=== PATIENT | female | born 1965 | race Caucasian/White ===

== ENCOUNTER 2016-12-14 12:06 | Emergency (ER) | payer OTHER ==
[~2016-12-14] VITALS: Ht 167.6 cm; Wt 88.4 kg
[2016-12-14 13:54] LABS: HEMATOCRIT 41.8 % (36.0-46.0); MCH 31.5 PG (29.0-34.0); MCHC 33.5 G/DL (30.0-36.0); MCV 94.1 FL (83-99); MEAN PLAT.VOLUME 9.3 uM^3 (9.5-12.4); PLATELET COUNT 448 K/uL (156-360); RBC DIS.WIDTH-SD 41.7 % (39-53); RED BLOOD COUNT 4.44 M/uL (3.80-5.20); WHITE BLOOD COUNT 9.5 K/uL (4.1-10.2)
[2016-12-14 14:04] LABS: CHLORIDE 106 mEq/L (99-109); POTASSIUM 3.9 mEq/L (3.7-5.4); SODIUM 143 mEq/L (136-147)
[2016-12-14 14:06] LABS: GLUCOSE 82 mg/dL (70-99)
[2016-12-14 14:07] LABS: ANION GAP 16 MEQ/L (2-14)
[2016-12-14 14:11] LABS: UREA NITROGEN (BUN) 7 mg/dL (9-23)
[2016-12-14 14:12] LABS: GFR ESTIMATE (CALCULATED) > 59 mL/min/
[2016-12-14] MEDS ORDERED: PERCOCET 5/31 TABLET PO (15:35)
[2016-12-14] MEDS ORDERED: ZOFRAN ODT4 MG PO (15:58)
[2016-12-14 16:05] VITALS: BP 128/78
== END 2016-12-14 16:06 | disposition home or self-care (01) ==
LOC: EME 12:06
PROVIDERS: Physician Assistant
DX: J90 Pleural effusion, not elsewhere classified (principal); N63 Unspecified lump in breast; F17.200 Nicotine dependence, unspecified, uncomplicated
CPT/HCPCS: 71020; 71250; 80048; 81003; 83880; 85027; 99281; 99285

== ENCOUNTER 2017-01-10 07:00 | Day surgery (SDC) | payer OTHER ==
[~2017-01-10] VITALS: Ht 167.6 cm; Wt 83.5 kg
== END 2017-01-10 09:35 | disposition home or self-care (01) ==
LOC: CATH 07:00
DX: C50.912 Malignant neoplasm of unspecified site of left female breast (principal); I87.8 Other specified disorders of veins
CPT/HCPCS: C1751; C1894; J1644; J2250; J3010; S0020

== ENCOUNTER → 2017-01-10 | Outpatient (CLI) | payer OTHER ==
[~2017-01-10] MED LIST: OXYCODONE HCL10 MG PO; PERCOCET 5/31 TABLET PO; ZOFRAN ODT4 MG PO
== END | disposition home or self-care (01) ==
LOC: RAD 09:36 → EDSTATUS 14:00 → RAD 14:00
PROC: 0W9B3ZZ Drainage of Left Pleural Cavity, Percutaneous Approach (ICD-10-PCS; principal; 2017-01-10)
DX: J90 Pleural effusion, not elsewhere classified (principal)
CPT/HCPCS: 76942; 88108; 88305

== ENCOUNTER 2017-01-19 20:37 | Emergency (ER) | payer OTHER ==
[~2017-01-19] VITALS: Ht 167.6 cm; Wt 81.4 kg
[2017-01-19] MEDS ORDERED: PROMETHAZINE HC25 M1 PO (20:51)
[2017-01-19] MEDS ORDERED: MORPHABOND ER30 MG PO (20:52)
[2017-01-19] MEDS ORDERED: PERCOCET 5/31 TABLET PO (23:19)
[2017-01-20 00:43] VITALS: BP 101/65
== END 2017-01-20 00:45 | disposition home or self-care (01) ==
LOC: EME → EDBD 20:37 → EME 01-20 00:45
PROC: 2W3QX1Z Immobilization of Right Lower Leg using Splint (ICD-10-PCS; principal; 2017-01-19)
DX: S82.831A Other fracture of upper and lower end of right fibula, initial encounter for closed fracture (principal); W18.30XA Fall on same level, unspecified, initial encounter; C50.919 Malignant neoplasm of unspecified site of unspecified female breast; M85.871 Other specified disorders of bone density and structure, right ankle and foot; Z87.891 Personal history of nicotine dependence
CPT/HCPCS: 73610; 73630; 99281; 99285; J2270

== ENCOUNTER → 2017-03-19 | Outpatient (CLI) | payer OTHER ==
[~2017-03-19] MED LIST changes: +MORPHABOND ER30 MG PO; +PROMETHAZINE HC25 M1 PO
== END | disposition home or self-care (01) ==
LOC: RAD 08:54 → EDSTATUS 09:00 → RAD 09:00
PROC: 0W9B3ZZ Drainage of Left Pleural Cavity, Percutaneous Approach (ICD-10-PCS; principal; 2017-03-19)
DX: J90 Pleural effusion, not elsewhere classified (principal)
CPT/HCPCS: 76942

== ENCOUNTER → 2017-07-03 | Outpatient (CLI) | payer OTHER ==
[~2017-07-03] MED LIST changes: +FEMARA2.5 MG PO; +FUROSEMIDE20 MG PO
== END | disposition home or self-care (01) ==
LOC: RAD 11:00 → EDSTATUS 11:00 → RAD 11:17
DX: J90 Pleural effusion, not elsewhere classified (principal)
CPT/HCPCS: 71045; 76942; 88108

== ENCOUNTER → 2017-12-19 | Outpatient (CLI) | payer OTHER ==
[~2017-12-19] MED LIST changes: +ANASTROZOLE1 MG PO; +DELTASONE20 M1 PO; +PROZAC20 MG PO; +VITAMIN D-32000 UNI2 PO
== END | disposition home or self-care (01) ==
LOC: RAD 12-16 14:00 → EDSTATUS 12-16 14:00 → RAD 11:00
PROC: 0W9B3ZZ Drainage of Left Pleural Cavity, Percutaneous Approach (ICD-10-PCS; principal; 2017-12-19)
DX: J90 Pleural effusion, not elsewhere classified (principal); C78.7 Secondary malignant neoplasm of liver and intrahepatic bile duct; C79.51 Secondary malignant neoplasm of bone; K80.20 Calculus of gallbladder without cholecystitis without obstruction; J98.19 Other pulmonary collapse; C50.812 Malignant neoplasm of overlapping sites of left female breast; Z17.0 Estrogen receptor positive status [ER+]
CPT/HCPCS: 71260; 74177; 76942

== ENCOUNTER → 2018-01-01 | Outpatient (CLI) | payer OTHER | END | disposition home or self-care (01) | LOC: NUC 09:46 | DX: C79.51 Secondary malignant neoplasm of bone (principal); Z87.81 Personal history of (healed) traumatic fracture | CPT/HCPCS: 78306; A9503 ==